=== PATIENT | male | born 1960 | race African-American/Black ===

== ENCOUNTER 2016-08-29 21:22 | Inpatient (IN) | payer MEDICARE, MEDICAID ==
[~2016-08-29] VITALS: Ht 185.4 cm; Wt 73.5 kg
[~2016-08-29 21:22] MED LIST: AMOXICILLI200 MG/5 M PO; CYCLOBENZAPRINE10 MG ORAL; DIAZEPAM5 MG ORAL; DIPHENHYDRAMINE25 M1 ORAL; KEFLEX500 MG ORAL; LISINOPRIL20 MG ORAL; RENVELA0.8 GM ORAL; ZEBETA5 MG ORAL
[2016-08-29 22:46] LABS: MEAN CORPUSCULAR HEMOGLOBIN 30.2 PG (27.0-31.0); MEAN CORPUSCULAR HGB CONC 29.1 G/DL (32.0-36.0); MEAN CORPUSCULAR VOLUME 104 FL (80-99); MEAN PLATELET VOLUME 6.7 FL (6.5-10.1); PLATELET COUNT 229 K/UL (150-450); RED BLOOD COUNT 1.93 M/UL (4.70-6.10); WHITE BLOOD COUNT 8.5 K/UL (4.8-10.8)
[2016-08-29 22:55] LABS: TROPONIN I < 0.30 ng/mL (<=0.30)
[2016-08-29 22:58] VITALS: BP 125/71
[2016-08-29 22:59] LABS: ALBUMIN/GLOBULIN RATIO 1.3 (1.0-2.7); CALCIUM 7.9 mg/dL (8.6-10.2); CREATININE 6.5 mg/dL (0.7-1.2); GLOMERULAR FILTRATION RATE 10.8 mL/min (>60); POTASSIUM 4.7 mEQ/L (3.4-4.9); TOTAL PROTEIN 6.8 g/dL (6.6-8.7)
[2016-08-29 23:10] LABS: CKMB 3.2 ng/mL (< 6.7)
[2016-08-29 23:39] LABS: ANISOCYTOSIS 2+; EOSINOPHILS % (MANUAL) 6 % (0-3); LYMPHOCYTES % (MANUAL) 21 % (20-45); NEUTROPHILS % (MANUAL) 70 % (45-75); POLYCHROMASIA 2+; TOTAL CELLS COUNTED 100
[2016-08-29 23:40] LABS: INR 1.1 (0.9-1.1); PROTHROMBIN TIME 10.7 SEC (9.30-11.50)
[2016-08-29 23:40] LABS: HYPOCHROMASIA 2+
[2016-08-29 23:41] LABS: BAND NEUTROPHILS % (MANUAL) 0 % (0-8); BASOPHILS % (MANUAL) 0 % (0-2); PLATELET ESTIMATE ADEQUATE; PLATELET MORPHOLOGY NORMAL
[2016-08-30] VITALS (9 sets, daily range): BP systolic 109–151; BP diastolic 67–94
[2016-08-30] MEDS ORDERED: DuoNeb 0.5-3(2.5)mg/3ml neb HHN PRN (00:30)
[2016-08-30] MEDS ORDERED: Miralax 17gm pkt ORAL PRN (00:30)
[2016-08-30] MEDS ORDERED: Zolpidem 5mg tab ORAL PRN (00:30)
[2016-08-30] MEDS ORDERED: Mylanta II UD 30ml ORAL PRN (00:30)
[2016-08-30] MEDS ORDERED: CATAPRES0.3 MG ORAL (02:24)
[2016-08-30] MEDS ORDERED: COMBIVENT RESPIM4 GM IH (02:24)
[2016-08-30] MEDS ORDERED: FLUTICASONE PRO16 G1 NASAL (02:24)
[2016-08-30] MEDS ORDERED: RENVELA0.8 GM ORAL (02:24)
[2016-08-30] MEDS ORDERED: RANITIDINE HCL150 MG ORAL (02:24)
--- NOTE | 2016-08-30 03:06 | Emergency Room Report ---
History of Present Illness General Chief Complaint: Abnormal Labs Source: Patient Present Illness HPI 55-year-old male presents ED complaining of weakness. Notes feeling weak for the last few days. States he gets dialysis today. Stated that at dialysis he had labs done which were abnormal. Said his potassium was high and he needed a transfusion. Denies any chest pain or shortness of breath. Denies any fevers or chills. No other aggravating relieving factors. Denies any other associated symptoms Allergies: Coded Allergies: IODINE (Verified Allergy, Unknown, 01/19/16) Patient History Past Medical History: DM, HTN, renal disease, dialysis Past Surgical History: none Pertinent Family History: none Social History: Denies: alcohol use, drug use, smoking Immunizations: UTD Reviewed Nursing Documentation: PMH: Agreed, PSxH: Agreed Nursing Documentation-PMH Hx Cardiac Problems: Yes Hx Hypertension: Yes Hx Diabetes: Yes Hx Dialysis: Yes - tues, thurs, sat kidney failure Review of Systems All Other Systems: negative except mentioned in HPI Physical Exam Vital Signs Date Time Temp Pulse Resp B/P Pulse Ox O2 Delivery O2 Flow Rate FiO2 08/29/16 21:32 98.1 86 18 137/90 100 Room Air Sp02 EP Interpretation: reviewed, normal General Appearance: no apparent distress, alert, GCS 15, non-toxic Head: normocephalic, atraumatic Eyes: bilateral eye PERRL, bilateral eye normal inspection ENT: hearing grossly normal, normal pharynx, no angioedema, normal voice Neck: full range of motion, supple/symm/no masses Respiratory: chest non-tender, lungs clear, normal breath sounds, speaking full sentences Cardiovascular #1: regular rate, rhythm, no edema Cardiovascular #2: 2+ carotid (R), 2+ carotid (L), 2+ radial (R), 2+ radial (L) , 2+ dorsalis pedis (R), 2+ dorsalis pedis (L) Gastrointestinal: normal bowel sounds, non tender, soft, non-distended, no guarding, no rebound Rectal: deferred Genitourinary: normal inspection, no CVA tenderness Musculoskeletal: back normal, gait/station normal, normal range of motion, non- tender Neurologic: alert, oriented x3, responsive, motor strength/tone normal, sensory intact, speech normal Psychiatric: judgement/insight normal, memory normal, mood/affect normal, no suicidal/homicidal ideation Reflexes: 3+ bicep (R), 3+ bicep (L), 3+ tricep (R), 3+ tricep (L), 3+ knee (R) , 3+ knee (L) Skin: normal color, no rash, warm/dry, well hydrated Lymphatic: no adenopathy Medical Decision Making Diagnostic Impression: Primary Impression: Anemia requiring transfusions Additional Impression: ESRD (end stage renal disease) on dialysis ER Course Hospital Course 55-year-old male presents to ED complaining of weakness, states his potassium is high. Was at dialysis today Differential diagnoses include: ACS/AL, dehydration, hyperkalelmia Clinical course Patient placed on stretcher. After initial history and physical I ordered labs , EKG, CXR Labs- hemoglobin 5.8, BUN/Cr elevated, Trop negative, K ok. CXR - cardiomegaly EKG - no ischemic changes, no peaked twaves, no sine wave. PRBCs ordered Case discussed with Dr Juarez and he agreed to admit the patient Diagnosis - anemia requiring transfusions, ESRD on dialysis admitted to [facility] in serious condition Labs Test 08/29/16 22:18 08/29/16 23:08 White Blood Count 8.5 K/UL (4.8-10.8) Red Blood Count 1.93 M/UL (4.70-6.10) Hemoglobin 5.8 G/DL (14.2-18.0) Hematocrit 20.1 % (42.0-52.0) Mean Corpuscular Volume 104 FL (80-99) Mean Corpuscular Hemoglobin 30.2 PG (27.0-31.0) Mean Corpuscular Hemoglobin Concent 29.1 G/DL (32.0-36.0) Red Cell Distribution Width 19.0 % (11.6-14.8) Platelet Count 229 K/UL (150-450) Mean Platelet Volume 6.7 FL (6.5-10.1) Neutrophils (%) (Auto) % (45.0-75.0) Lymphocytes (%) (Auto) % (20.0-45.0) Monocytes (%) (Auto) % (1.0-10.0) Eosinophils (%) (Auto) % (0.0-3.0) Basophils (%) (Auto) % (0.0-2.0) Differential Total Cells Counted 100 Neutrophils % (Manual) 70 % (45-75) Lymphocytes % (Manual) 21 % (20-45) Monocytes % (Manual) 3 % (1-10) Eosinophils % (Manual) 6 % (0-3) Basophils % (Manual) 0 % (0-2) Band Neutrophils 0 % (0-8) Platelet Estimate Adequate Platelet Morphology Normal Polychromasia 2+ Hypochromasia 2+ Anisocytosis 2+ Sodium Level 141 mEQ/L (135-145) Potassium Level 4.7 mEQ/L (3.4-4.9) Chloride Level 99 mEQ/L (98-107) Carbon Dioxide Level 24 mEQ/L (20-30) Anion Gap 18 (5-15) Blood Urea Nitrogen 29 mg/dL (7-23) Creatinine 6.5 mg/dL (0.7-1.2) Estimat Glomerular Filtration Rate 10.8 mL/min (>60) Glucose Level 102 mg/dL (74-106) Calcium Level 7.9 mg/dL (8.6-10.2) Total Bilirubin 0.2 mg/dL (0.0-1.2) Aspartate Amino Transf (AST/SGOT) 32 U/L (5-40) Alanine Aminotransferase (ALT/SGPT) 17 U/L (3-41) Alkaline Phosphatase 85 U/L (40-129) Total Creatine Kinase 144 U/L (38-174) Creatine Kinase MB 3.2 ng/mL (< 6.7) Creatine Kinase MB Relative Index 2.2 Troponin I < 0.30 ng/mL (<=0.30) Pro-B-Type Natriuretic Peptide 97206 pg/mL (0-125) Total Protein 6.8 g/dL (6.6-8.7) Albumin 3.9 g/dL (3.5-5.2) Globulin 2.9 g/dL Albumin/Globulin Ratio 1.3 (1.0-2.7) Prothrombin Time 10.7 SEC (9.30-11.50) Prothromb Time International Ratio 1.1 (0.9-1.1) Activated Partial Thromboplast Time 25 SEC (23-33) EKG Diagnostic Results Rate: normal Rhythm: NSR ST Segments: no acute changes ASA given to the pt in ED: No Rhythm Strip Diag. Results EP Interpretation: yes Rhythm: NSR, no PVC's, no ectopy Chest X-Ray Diagnostic Results EP Interpretation: Yes Findings: no consolidation, no effusion, no pneumothorax, no acute cardiopulmonary disease, other - cardiomegaly Number of Views: 1 Last Vital Signs Date Time Temp Pulse Resp B/P Pulse Ox O2 Delivery O2 Flow Rate FiO2 08/30/16 02:30 97.6 77 15 142/67 100 Room Air Status: improved Disposition: ADMITTED INPATIENT Condition: Serious Referrals: NON PHYSICIAN (PCP) SERAFIN NICOLE M.D. Aug 30, 2016 03:06
[2016-08-30] MEDS: Morphine Sulfate 2mg/ml Inj IVP PRN ×2 (04:23→23:09)
[2016-08-30] MEDS ORDERED: LISINOPRIL40 MG ORAL (04:36)
[2016-08-30] MEDS ORDERED: NITROSTAT0.4 M1 SL (04:36)
[2016-08-30] MEDS ORDERED: RENVELA800 MG ORAL (04:36)
[2016-08-30] MEDS ORDERED: NIFEDICAL XL60 MG ORAL (04:36)
[2016-08-30] MEDS ORDERED: TYLENOL WITH C1 EAC2 ORAL (04:40)
[2016-08-30] MEDS: NovoLOG Insulin Flexpen SUBQ SCH ×4 (06:30→21:00)
[2016-08-30 08:12] LABS: MEAN CORPUSCULAR HEMOGLOBIN 29.9 PG (27.0-31.0); MEAN CORPUSCULAR HGB CONC 29.3 G/DL (32.0-36.0); MEAN CORPUSCULAR VOLUME 102 FL (80-99); MEAN PLATELET VOLUME 7.3 FL (6.5-10.1); PLATELET COUNT 195 K/UL (150-450); RED BLOOD COUNT 2.17 M/UL (4.70-6.10); RED CELL DISTRIBUTION WIDTH 18.4 % (11.6-14.8); WHITE BLOOD COUNT 6.5 K/UL (4.8-10.8)
[2016-08-30] MEDS: Heparin 5000 units/ml inj SUBQ SCH ×2 (08:27→21:00)
[2016-08-30 08:36] LABS: PATH BLOOD SMEAR/OMC SENT TO PATHOLOGIST
--- NOTE | 2016-08-30 08:45 | Consultation ---
Consult Note Consult Note asked to eval for dialysis management 55-year-old male presents ED complaining of weakness. Notes feeling weak for the last few days. States he gets dialysis today. Stated that at dialysis he had labs done which were abnormal. Said his potassium was high and he needed a transfusion. Denies any chest pain or shortness of breath. Denies any fevers or chills. No other aggravating relieving factors. Denies any other associated symptoms Allergies: IODINE (Verified Allergy, Unknown, 01/19/16) Past Medical History: DM, HTN, renal disease, dialysis admitted with sever symptomatic Anemia HD last yesterday , next 08/31 Assessment/Plan ESRD for 16 years Anemia HTN Plan: Transfuse- Anemia ORTIZ HD in am BP adjustment FIDELINA MOFFETT Aug 30, 2016 08:45
[2016-08-30 09:31] LABS: ERYTHROCYTE SEDIMENTATION RATE 60 MM/HR (0-20)
[2016-08-30 09:35] LABS: ANISOCYTOSIS 2+; BAND NEUTROPHILS % (MANUAL) 0 % (0-8); BASOPHILS % (MANUAL) 0 % (0-2); EOSINOPHILS % (MANUAL) 10 % (0-3); HYPOCHROMASIA 2+; LYMPHOCYTES % (MANUAL) 28 % (20-45); NEUTROPHILS % (MANUAL) 60 % (45-75); PLATELET ESTIMATE ADEQUATE; PLATELET MORPHOLOGY NORMAL; TOTAL CELLS COUNTED 100
[2016-08-30 09:36] LABS: MACROCYTES 1+
[2016-08-30 09:37] LABS: POLYCHROMASIA 1+
[2016-08-30] MEDS: Lisinopril 20mg tab ORAL SCH ×2 (09:59→17:23)
[2016-08-30 10:26] LABS: RETICULOCYTE COUNT 6.3 % (0.0-2.0)
--- NOTE | 2016-08-30 12:24 | Diagnostic Imaging Report ---
Indication: Shortness of breath Technique: One view of the chest Comparison: 10/25/2007 Findings: The heart is markedly enlarged, although less so than demonstrated on the previous exam. Lungs and pleural spaces are clear.. Impression: Cardiomegaly No definite acute process This agrees with the preliminary interpretation provided by the emergency room physician
--- NOTE | 2016-08-30 15:07 | Consultation ---
History of Present Illness General Date patient seen: Aug 30, 2016 Chief Complaint: Abnormal Labs Referring physician: Dr. Juarez Reason for Consultation: inpatient management Present Illness HPI 55-year-old male with hx of DM, HTN, ESRF, Cardiomegaly presented to ED complaining of weakness for the last few days. States he gets dialysis and had labs done which were abnormal. Said his potassium was high and he needed a transfusion. Denies any chest pain or shortness of breath. Denies any fevers or chills. No other aggravating relieving factors. Patient received the initial treatment in ER and admitted to telemetry for further evaluation. Allergies: Coded Allergies: IODINE (Verified Allergy, Unknown, 01/19/16) PENICILLINS (Verified Allergy, Unknown, 08/30/16) Medication History Scheduled Acetaminophen With Codeine (T#3) (Tylenol With Codeine #3 Tablet), 1 TAB ORAL DAILY, (Reported) Amoxicillin* (Amoxicillin*), 500 MG PO DAILY, (Reported) Bisoprolol Fumarate* (Zebeta*), 5 MG ORAL DAILY, (Reported) Cephalexin* (Keflex*), 500 MG ORAL Q6H Clonidine Hcl* (Catapres*), 0.3 MG ORAL Q6HR, (Reported) Cyclobenzaprine Hcl* (Flexeril*), 10 MG ORAL DAILY, (Reported) Diphenhydramine Hcl* (Diphenhydramine Hcl*), 25 MG ORAL DAILY, (Reported) Fluticasone Propionate* (Fluticasone Propionate*), 1 SPRAY NASAL DAILY, ( Reported) Lisinopril* (Lisinopril*), 40 MG ORAL BID, (Reported) Nifedipine Xl* (Procardia Xl*), 60 MG ORAL DAILY, (Reported) Ranitidine Hcl* (Zantac*), 150 MG ORAL DAILY, (Reported) Sevelamer Carbonate (Renvela), 3,200 MG ORAL THREE TIMES A DAY, (Reported) Scheduled PRN Diazepam* (Diazepam*), 5 MG ORAL DAILY PRN for For High Blood Pressure, ( Reported) Nitroglycerin (Nitrostat), 0.4 MG SL Q5M X3 DOSES PRN for CHEST PAIN, (Reported) Miscellaneous Medications Ipratropium/Albuterol Sulfate (Combivent Respimat Inhal [place]), 4 GM IH, ( Reported) Discontinued Medications Lisinopril (Lisinopril*), 40 MG ORAL TID, (Reported) Discontinued Reason: Prescription changed Sevelamer Carbonate* (Renvela*), 800 MG ORAL THREE TIMES A DAY, (Reported) Discontinued Reason: Prescription changed Patient History Healthcare decision maker Resuscitation status Full Code Advanced Directive on File Past Medical/Surgical History Past Medical/Surgical History: (1) ESRD (end stage renal disease) on dialysis (2) Diabetes mellitus Review of Systems Constitutional: Reports: malaise, weakness All Other Systems: negative except mentioned in HPI Physical Exam General Appearance: WD/WN Lines, tubes and drains: peripheral, central line Neck: non-tender, normal alignment Respiratory/Chest: chest wall non-tender, lungs clear Cardiovascular/Chest: normal peripheral pulses, normal rate Abdomen: normal bowel sounds Last 24 Hour Vital Signs Date Time Temp Pulse Resp B/P Pulse Ox O2 Delivery O2 Flow Rate FiO2 08/30/16 11:18 96.9 75 20 151/91 100 Room Air 08/30/16 09:59 146/70 08/30/16 09:57 70 146/70 08/30/16 08:00 75 08/30/16 08:00 96.3 70 20 146/70 100 Room Air 08/30/16 04:08 98.7 74 20 146/83 95 Room Air 08/30/16 04:00 73 08/30/16 02:45 96.8 16 125/75 100 Room Air 08/30/16 02:30 97.6 77 15 142/67 100 Room Air 08/30/16 02:10 97.6 77 15 08/30/16 02:10 97.6 77 15 142/67 100 Room Air 08/30/16 01:55 97.3 77 12 148/72 100 Room Air 08/30/16 01:55 97.3 77 12 08/30/16 01:00 98.1 79 16 129/74 100 Room Air 08/29/16 22:58 98.1 78 13 125/71 100 Room Air 08/29/16 21:32 98.1 86 18 137/90 100 Room Air Intake and Output 08/29/16 08/30/16 19:00 07:00 Intake Total 30 ml Balance 30 ml Intake Oral 30 ml Laboratory Tests Test 08/29/16 22:18 08/29/16 23:08 08/30/16 06:35 08/30/16 08:00 White Blood Count 8.5 K/UL (4.8-10.8) 6.5 K/UL (4.8-10.8) Red Blood Count 1.93 M/UL (4.70-6.10) L 2.17 M/UL (4.70-6.10) L Hemoglobin 5.8 G/DL (14.2-18.0) *L 6.5 G/DL (14.2-18.0) *L Hematocrit 20.1 % (42.0-52.0) L 22.2 % (42.0-52.0) L Mean Corpuscular Volume 104 FL (80-99) H 102 FL (80-99) H Mean Corpuscular Hemoglobin 30.2 PG (27.0-31.0) 29.9 PG (27.0-31.0) Mean Corpuscular Hemoglobin Concent 29.1 G/DL (32.0-36.0) L 29.3 G/DL (32.0-36.0) L Red Cell Distribution Width 19.0 % (11.6-14.8) H 18.4 % (11.6-14.8) H Platelet Count 229 K/UL (150-450) 195 K/UL (150-450) Mean Platelet Volume 6.7 FL (6.5-10.1) 7.3 FL (6.5-10.1) Neutrophils (%) (Auto) % (45.0-75.0) % (45.0-75.0) Lymphocytes (%) (Auto) % (20.0-45.0) % (20.0-45.0) Monocytes (%) (Auto) % (1.0-10.0) % (1.0-10.0) Eosinophils (%) (Auto) % (0.0-3.0) % (0.0-3.0) Basophils (%) (Auto) % (0.0-2.0) % (0.0-2.0) Differential Total Cells Counted 100 100 Neutrophils % (Manual) 70 % (45-75) 60 % (45-75) Lymphocytes % (Manual) 21 % (20-45) 28 % (20-45) Monocytes % (Manual) 3 % (1-10) 2 % (1-10) Eosinophils % (Manual) 6 % (0-3) H 10 % (0-3) H Basophils % (Manual) 0 % (0-2) 0 % (0-2) Band Neutrophils 0 % (0-8) 0 % (0-8) Platelet Estimate Adequate Adequate Platelet Morphology Normal Normal Polychromasia 2+ 1+ Hypochromasia 2+ 2+ Anisocytosis 2+ 2+ Sodium Level 141 mEQ/L (135-145) Potassium Level 4.7 mEQ/L (3.4-4.9) Chloride Level 99 mEQ/L (98-107) Carbon Dioxide Level 24 mEQ/L (20-30) Anion Gap 18 (5-15) H Blood Urea Nitrogen 29 mg/dL (7-23) H Creatinine 6.5 mg/dL (0.7-1.2) H Estimat Glomerular Filtration Rate 10.8 mL/min (>60) Glucose Level 102 mg/dL (74-106) Calcium Level 7.9 mg/dL (8.6-10.2) L Total Bilirubin 0.2 mg/dL (0.0-1.2) Aspartate Amino Transf (AST/SGOT) 32 U/L (5-40) Alanine Aminotransferase (ALT/SGPT) 17 U/L (3-41) Alkaline Phosphatase 85 U/L (40-129) Total Creatine Kinase 144 U/L (38-174) Creatine Kinase MB 3.2 ng/mL (< 6.7) Creatine Kinase MB Relative Index 2.2 Troponin I < 0.30 ng/mL (<=0.30) Pro-B-Type Natriuretic Peptide 46561 pg/mL (0-125) H Total Protein 6.8 g/dL (6.6-8.7) Albumin 3.9 g/dL (3.5-5.2) Globulin 2.9 g/dL Albumin/Globulin Ratio 1.3 (1.0-2.7) Prothrombin Time 10.7 SEC (9.30-11.50) Prothromb Time International Ratio 1.1 (0.9-1.1) Activated Partial Thromboplast Time 25 SEC (23-33) Macrocytosis 1+ Erythrocyte Sedimentation Rate 60 MM/HR (0-20) H Reticulocyte Count 6.3 % (0.0-2.0) H Iron Level 60 ug/dL (59-158) Total Iron Binding Capacity 289 ug/dL (250-400) Percent Iron Saturation 21 % (15-50) Unsaturated Iron Binding 229 ug/dL (112-346) Lactate Dehydrogenase 185 U/L (135-230) Carcinoembryonic Antigen 5.4 ng/mL H Vitamin B12 Level 1417 pg/mL (211-946) H Methylmalonic Acid Pending Folate Pending Homocystine Pending Stool Occult Blood Positive (NEGATIVE) Height (Feet): 6 Height (Inches): 1.00 Weight (Pounds): 145 Medications Current Medications Medications (Trade) Dose Ordered Sig/Alejandro Route PRN Reason Start Time Stop Time Status Last Admin Dose Admin Acetaminophen (Tylenol) 650 mg Q4H PRN ORAL fever 08/30/16 00:30 09/29/16 00:29 Albuterol/ Ipratropium (DuoNeb 0.5-3(2.5)mg/3ml) 3 ml Q6HRT PRN HHN dyspnea 08/30/16 00:30 09/04/16 00:29 Clonidine HCl (Catapres) 0.1 mg Q4H PRN ORAL SBP>160 08/30/16 12:30 09/29/16 12:29 Dextrose (Dextrose 50%) STAT PRN IV Hypoglycemia 08/30/16 00:30 09/29/16 00:29 Heparin Sodium (Porcine) (Heparin 5000 units/ml) 5,000 units EVERY 12 HOURS SUBQ 08/30/16 09:00 09/29/16 08:59 Insulin Aspart (NovoLOG) BEFORE MEALS AND HS SUBQ 08/30/16 06:30 09/29/16 06:29 Lisinopril (Prinivil) 40 mg BID ORAL 08/30/16 09:00 09/29/16 08:59 08/30/16 09:59 Morphine Sulfate (Morphine Sulfate) 1 mg Q4H PRN IVP For Pain 08/30/16 00:30 09/06/16 00:29 08/30/16 04:23 Nifedipine (Procardia XL) 60 mg DAILY ORAL 08/30/16 09:00 09/29/16 08:59 08/30/16 09:57 Ondansetron HCl (Zofran) 4 mg Q6H PRN IVP Nausea & Vomiting 08/30/16 00:30 09/29/16 00:29 Pantoprazole (Protonix) 40 mg BID ORAL 08/30/16 09:00 09/29/16 08:59 08/30/16 09:58 Polyethylene Glycol (Miralax) 17 gm HSPRN PRN ORAL Constipation 08/30/16 00:30 09/29/16 00:29 Ranitidine HCl (Zantac) 150 mg DAILY ORAL 08/30/16 09:00 09/29/16 08:59 08/30/16 09:57 Sevelamer Carbonate (Renvela) 3,200 mg THREE TIMES A DAY ORAL 08/30/16 09:00 09/29/16 08:59 08/30/16 13:06 Zolpidem Tartrate (Ambien) 5 mg HSPRN PRN ORAL Insomnia 08/30/16 00:30 09/29/16 00:29 Assessment/Plan Problem List: (1) Anemia requiring transfusions ICD Codes: D64.9 - Anemia, unspecified SNOMED: 421155702 (2) Cardiomegaly ICD Codes: I51.7 - Cardiomegaly SNOMED: 8082434 (3) Diabetes mellitus ICD Codes: E11.9 - Type 2 diabetes mellitus without complications SNOMED: 92630210 (4) ESRD (end stage renal disease) on dialysis ICD Codes: N18.6 - End stage renal disease; Z99.2 - Dependence on renal dialysis SNOMED: 473466544 Assessment/Plan prbc stool for guac HD by nephrology diabetic diet sliding scale MICAH JEAN BAPTISTE Aug 30, 2016 15:07
--- NOTE | 2016-08-30 19:19 | History and Physical Report ---
DATE OF ADMISSION: 08/29/2016 HISTORY OF PRESENT ILLNESS: The patient comes in with severe anemia, hemoglobin of 5.8. The patient has end-stage renal disease, on hemodialysis. The patient also is complaining of shortness of breath. The patient smokes, has a history of drug abuse. Also on hemodialysis. The patient also is complaining of abdominal pain for couple of days, but the main reason he came in was for shortness of breath and weakness, and for severe anemia. PAST MEDICAL HISTORY: Significant for hypertension; end-stage renal disease, on hemodialysis; NIDDM; constipation; and GERD. ALLERGIES: Penicillin and iodine. PAST SURGICAL HISTORY: Hernia surgery and those related to dialysis surgery. MEDICATIONS: Catapres, Flexeril, diazepam, lisinopril, Procardia, Zantac, and Januvia. FAMILY HISTORY: Noncontributory. SOCIAL HISTORY: The patient smokes and has a history of drug abuse. No history of alcohol abuse. REVIEW OF SYSTEMS: HEENT: Denies headaches. weakness. Respiratory: Shortness of breath. Denies cough. Cardiovascular: Denies chest pain. Gastrointestinal: Denies nausea, vomiting, or diarrhea. Does have abdominal pain for a couple of days. Does have occasional constipation. Extremities: Denies pain in extremities. Central Nervous System: Denies change in vision or speech pattern. PHYSICAL EXAMINATION: VITAL SIGNS: Temperature is 98.7, pulse is 74, and blood pressure is 146/83. HEENT: PERRLA. NECK: Supple. CHEST: Clear to auscultation. He does have bruit on the shunt with dialysis, positive bruit. GASTROINTESTINAL: Soft, nontender, and nondistended. No organomegaly. Positive bowel sounds. EXTREMITIES: 1+ edema. NEUROLOGIC: Moves all four extremities. LABORATORY DATA: WBC of 8.5, hemoglobin of 5.8, and platelets of 229,000. Sodium 141, potassium 4.7, BUN of 29, creatinine of 6.5, and glucose of 102. BNP of 44,368. ASSESSMENT AND PLAN: 1. Severe anemia. 2. End-stage renal disease, on hemodialysis. 3. Elevated BNP. 4. I have asked Dr. Lwason, Dr. Irene, Dr. Brock, and Dr. Bird to the patient with shortness of breath and the above-mentioned diagnoses and treatment. Juan Carlos Juarez M.D. DR: JAIDEN JOB#: [id number] CC:
[2016-08-30] MEDS ORDERED: Nitroglycerin Subl 0.4mg tab (Bottle Of 25) SL PRN ×2 (23:30→23:45)
[2016-08-31] VITALS (7 sets, daily range): BP systolic 156–179; BP diastolic 86–103
[2016-08-31] MEDS ORDERED: Morphine Sulfate 2mg/ml Inj IVP PRN (00:30)
[2016-08-31] MEDS ORDERED: Zolpidem 5mg tab ORAL PRN (00:30)
[2016-08-31] MEDS ORDERED: Miralax 17gm pkt ORAL PRN (00:30)
[2016-08-31] MEDS ORDERED: DuoNeb 0.5-3(2.5)mg/3ml neb HHN PRN (01:00)
--- NOTE | 2016-08-31 03:19 | Consultation ---
DATE OF CONSULTATION: 08/30/2016 NOTE: VERY POOR AUDIO QUALITY HEMATOLOGY/ONCOLOGY CONSULTATION REFERRING PHYSICIAN: Juan Carlos Juarez M.D REASON FOR CONSULTATION: Evaluation of anemia, severe. IDENTIFICATION: Dear Dr. Larry Rangel, The patient is a 55-year-old male with a past medical history significant for end-stage renal disease on hemodialysis, hypertension, and diabetes mellitus, at this time is admitted with anemia that is severe with a hemoglobin of 5.8. He complains of weakness upon presentation to the ER . He has missed several sessions of dialysis and most recently has completed several days of . Potassium is elevated. The patient received his transfusion asymptomatic at this time. Hematology service was consulted . PAST MEDICAL HISTORY: Hypertension, end-stage renal disease, on dialysis, and diabetes mellitus. PAST SURGICAL HISTORY: None noted. MEDICATIONS: Tylenol, amoxicillin, Divalproex, Keflex, Clozaril, benazepril, . ALLERGIES: No known drug allergies. REVIEW OF SYSTEMS: Constitutional: Generalized malaise and fatigue. Skin: No rashes, lumps, or itching. HEENT: No headache, hearing, or vision changes. Breasts: No lumps, pain, or discharge. Pulmonary: No cough, sputum, or shortness of breath. Cardiovascular: No chest pain, tightness, or palpitations. Gastrointestinal: No nausea, vomiting, or diarrhea. Genitourinary: No dysuria, frequency, or urgency. Musculoskeletal: No joint swelling, muscle pain, or trauma. PHYSICAL EXAMINATION: VITAL SIGNS: Blood pressure is 109/88, respiratory rate 12, pulse 71, O2 saturation 99% on room air, and temperature 96.6. GENERAL: The patient is in no acute distress. PULMONARY: Decreased breath sounds. CARDIOVASCULAR: Regular rate and rhythm. No S3 or S4. ABDOMEN: Soft, nontender, and nondistended. EXTREMITIES: A 1+ edema. LABORATORY DATA: WBC is 6.5, hemoglobin 5.8, hematocrit 22, MCV , and platelet count 195,000. ESR 60 and reticulocyte count of 6.3. Chemistry, BUN 29, creatinine 6.5. . Vitamin B12 . INR 1.1. ASSESSMENT: 1. Anemia, secondary to chronic disease. 2. Decreased hemoglobin and hematocrit, rule out gastrointestinal bleed. 3. , secondary to B12 deficiency versus TSH abnormality . 4. Anemia, secondary to kidney disease. 5. End-stage renal disease, on hemodialysis. 6. Hypertension. 7. . 8. . 9. Diabetes mellitus. RECOMMENDATIONS: 1. Monitor counts. 2. Hemodialysis to resume. 3. Continue Epogen. 4. Anemia workup has been ordered. 5. . 6. GI prophylaxis. 7. Transfuse with blood to maintain hemoglobin above 7. 8. . 9. Peripheral smear to be reviewed. 10. Followup on Pulmonary . 11. Check iron status. 12. Discussed with staff. Thank you, Dr. Larry Rangel, for this kind referral. Please do not hesitate to contact me with any further questions. Triston Irene M.D. DR: CHRIS JOB#: [id number] CC:
[2016-08-31 06:29] LABS: BASOPHILS % (AUTO) 0.6 % (0.0-2.0); LYMPHOCYTES % (AUTO) 13.5 % (20.0-45.0); MEAN CORPUSCULAR HEMOGLOBIN 31.5 PG (27.0-31.0); MEAN CORPUSCULAR HGB CONC 31.8 G/DL (32.0-36.0); MEAN CORPUSCULAR VOLUME 99 FL (80-99); MEAN PLATELET VOLUME 6.9 FL (6.5-10.1); MONOCYTES % (AUTO) 4.4 % (1.0-10.0); NEUTROPHILS % (AUTO) 71.6 % (45.0-75.0); PLATELET COUNT 199 K/UL (150-450); RED BLOOD COUNT 2.88 M/UL (4.70-6.10); RED CELL DISTRIBUTION WIDTH 17.2 % (11.6-14.8)
[2016-08-31] MEDS ORDERED: NovoLOG Insulin Flexpen SUBQ SCH (06:30)
[2016-08-31 07:02] LABS: THYROID STIMULATING HORMONE 1.31 uIU/mL (0.300-4.500)
[2016-08-31 07:10] LABS: HEMOGLOBIN A1C 4.1 % (< 6.0)
[2016-08-31 07:13] LABS: ALBUMIN/GLOBULIN RATIO 1.6 (1.0-2.7); CALCIUM 7.5 mg/dL (8.6-10.2); CREATININE 8.9 mg/dL (0.7-1.2); GLOMERULAR FILTRATION RATE 7.5 mL/min (>60); POTASSIUM 5.1 mEQ/L (3.4-4.9); TOTAL PROTEIN 6.1 g/dL (6.6-8.7)
[2016-08-31 07:21] LABS: CRP QUANT 0.3 mg/dL (< 0.5); MAGNESIUM 2.6 mg/dL (1.7-2.5); PHOSPHORUS 5.5 mg/dL (2.5-4.8); URIC ACID 6.6 mg/dL (3.0-7.5)
[2016-08-31] MEDS: Heparin 5000 units/ml inj SUBQ SCH ×3 (09:00→20:51)
[2016-08-31] MEDS: Lisinopril 20mg tab ORAL SCH ×2 (09:00→17:25)
--- NOTE | 2016-08-31 09:52 | General Progress Note ---
Assessment/Plan Status Narrative transfused for Anemia- Due for dialysis today Assessment/Plan status; ESRD for 16 years Anemia HTN no evidence of DM Plan: Transfused Anemia ORTIZ HD today BP med adjustment Subjective ROS Limited/Unobtainable: No Constitutional: Reports: other - feels volume overload Allergies: Coded Allergies: IODINE (Verified Allergy, Unknown, 01/19/16) PENICILLINS (Verified Allergy, Unknown, 08/30/16) Objective Last 24 Hour Vital Signs Date Time Temp Pulse Resp B/P Pulse Ox O2 Delivery O2 Flow Rate FiO2 08/31/16 08:08 96.8 73 20 179/96 99 Room Air 08/31/16 07:50 82 16 Room Air 08/31/16 04:00 97.7 78 22 156/93 100 Room Air 08/31/16 00:00 97.5 76 20 161/103 100 Room Air 08/30/16 23:18 161/92 08/30/16 20:00 97.9 75 18 150/94 99 Room Air 08/30/16 17:23 109/88 08/30/16 16:00 96.6 71 18 109/88 99 Room Air 08/30/16 11:18 96.9 75 20 151/91 100 Room Air 08/30/16 09:59 146/70 08/30/16 09:57 70 146/70 Intake and Output 08/30/16 08/31/16 19:00 07:00 Intake Total 400 ml 360 ml Balance 400 ml 360 ml Intake Oral 400 ml 360 ml # Voids 1 # Bowel Movements 1 2 Laboratory Tests 08/31/16 04:15: White Blood Count 10.0#, Red Blood Count 2.88L, Hemoglobin 9.1#L, Hematocrit 28.6L, Mean Corpuscular Volume 99, Mean Corpuscular Hemoglobin 31.5H, Mean Corpuscular Hemoglobin Concent 31.8L, Red Cell Distribution Width 17.2H, Platelet Count 199, Mean Platelet Volume 6.9, Neutrophils (%) (Auto) 71.6, Lymphocytes (%) (Auto) 13.5L, Monocytes (%) (Auto) 4.4, Eosinophils (%) (Auto) 10.0H, Basophils (%) (Auto) 0.6, Sodium Level 138, Potassium Level 5.1H, Chloride Level 93L, Carbon Dioxide Level 23, Anion Gap 22H, Blood Urea Nitrogen 47H, Creatinine 8.9H, Estimat Glomerular Filtration Rate 7.5, Glucose Level 134H , Hemoglobin A1c 4.1, Uric Acid 6.6, Calcium Level 7.5L, Phosphorus Level 5.5H, Magnesium Level 2.6H, Total Bilirubin 0.3, Aspartate Amino Transf (AST/SGOT) 33 , Alanine Aminotransferase (ALT/SGPT) 17, Alkaline Phosphatase 83, C-Reactive Protein, Quantitative 0.3, Pro-B-Type Natriuretic Peptide 17990Q, Total Protein 6.1L, Albumin 3.8, Globulin 2.3, Albumin/Globulin Ratio 1.6, Triglycerides Level 121, Cholesterol Level 129, LDL Cholesterol 42L, HDL Cholesterol 63H, Cholesterol/HDL Ratio 2.0L, Thyroid Stimulating Hormone (TSH) 1.310 Height (Feet): 6 Height (Inches): 1.00 Weight (Pounds): 167 Cardiovascular: normal rate Respiratory/Chest: decreased breath sounds Abdomen: soft Objective other physical exam not changed FIDELINA MOFFETT Aug 31, 2016 09:52
[2016-08-31] MEDS ORDERED: NS 275ml ONE (11:01)
--- NOTE | 2016-08-31 11:09 | General Progress Note ---
Assessment/Plan Problem List: (1) UTI (urinary tract infection) ICD Codes: N39.0 - Urinary tract infection, site not specified SNOMED: 56649000 (2) ESRD (end stage renal disease) on dialysis ICD Codes: N18.6 - End stage renal disease; Z99.2 - Dependence on renal dialysis SNOMED: 063622319 (3) Anemia requiring transfusions ICD Codes: D64.9 - Anemia, unspecified SNOMED: 940436380 (4) Diabetes mellitus ICD Codes: E11.9 - Type 2 diabetes mellitus without complications SNOMED: 69144117 (5) Cardiomegaly ICD Codes: I51.7 - Cardiomegaly SNOMED: 3937241 Status: progressing Assessment/Plan afebrile severe anemia is improving check h/h reviewed chart and labs esrd on hd Subjective ROS Limited/Unobtainable: Yes Allergies: Coded Allergies: IODINE (Verified Allergy, Unknown, 01/19/16) PENICILLINS (Verified Allergy, Unknown, 08/30/16) Objective Last 24 Hour Vital Signs Date Time Temp Pulse Resp B/P Pulse Ox O2 Delivery O2 Flow Rate FiO2 08/31/16 11:05 189/102 08/31/16 09:15 Room Air 08/31/16 08:08 96.8 73 20 179/96 99 Room Air 08/31/16 07:50 82 16 Room Air 08/31/16 04:00 97.7 78 22 156/93 100 Room Air 08/31/16 00:00 97.5 76 20 161/103 100 Room Air 08/30/16 23:18 161/92 08/30/16 20:00 97.9 75 18 150/94 99 Room Air 08/30/16 17:23 109/88 08/30/16 16:00 96.6 71 18 109/88 99 Room Air 08/30/16 11:18 96.9 75 20 151/91 100 Room Air Intake and Output 08/30/16 08/31/16 19:00 07:00 Intake Total 400 ml 360 ml Balance 400 ml 360 ml Intake Oral 400 ml 360 ml # Voids 1 # Bowel Movements 1 2 Laboratory Tests 08/31/16 04:15: White Blood Count 10.0#, Red Blood Count 2.88L, Hemoglobin 9.1#L, Hematocrit 28.6L, Mean Corpuscular Volume 99, Mean Corpuscular Hemoglobin 31.5H, Mean Corpuscular Hemoglobin Concent 31.8L, Red Cell Distribution Width 17.2H, Platelet Count 199, Mean Platelet Volume 6.9, Neutrophils (%) (Auto) 71.6, Lymphocytes (%) (Auto) 13.5L, Monocytes (%) (Auto) 4.4, Eosinophils (%) (Auto) 10.0H, Basophils (%) (Auto) 0.6, Sodium Level 138, Potassium Level 5.1H, Chloride Level 93L, Carbon Dioxide Level 23, Anion Gap 22H, Blood Urea Nitrogen 47H, Creatinine 8.9H, Estimat Glomerular Filtration Rate 7.5, Glucose Level 134H , Hemoglobin A1c 4.1, Uric Acid 6.6, Calcium Level 7.5L, Phosphorus Level 5.5H, Magnesium Level 2.6H, Total Bilirubin 0.3, Aspartate Amino Transf (AST/SGOT) 33 , Alanine Aminotransferase (ALT/SGPT) 17, Alkaline Phosphatase 83, C-Reactive Protein, Quantitative 0.3, Pro-B-Type Natriuretic Peptide 72163Q, Total Protein 6.1L, Albumin 3.8, Globulin 2.3, Albumin/Globulin Ratio 1.6, Triglycerides Level 121, Cholesterol Level 129, LDL Cholesterol 42L, HDL Cholesterol 63H, Cholesterol/HDL Ratio 2.0L, Thyroid Stimulating Hormone (TSH) 1.310 Height (Feet): 6 Height (Inches): 1.00 Weight (Pounds): 167 EENT: PERRL/EOMI Neck: supple Cardiovascular: normal rate Respiratory/Chest: lungs clear Abdomen: soft Juan Carlos Juarez MD Aug 31, 2016 11:09
--- NOTE | 2016-08-31 16:07 | General Progress Note ---
Assessment/Plan Assessment/Plan ASSESSMENT: 1. Anemia, secondary to chronic disease. +MACROcytosis 2. Decreased hemoglobin and hematocrit, rule out gastrointestinal bleed. 3. Anemia secondary to B12 deficiency 4. Anemia, secondary to kidney disease. 5. End-stage renal disease, on hemodialysis. 6. Hypertension. 7. DM RECOMMENDATIONS: 1. Monitor counts. 2. Hemodialysis to resume. 3. Continue Epogen. 4. Anemia workup has been reviewed 5. Continue ferrous sulfate given ferritin <300 6. GI prophylaxis. 7. Transfuse with blood to maintain hemoglobin above 7. 8. Followup with nephro, pulm recs 9. Discussed with staff. Thank you, Triston Irene MD Subjective Constitutional: Reports: no symptoms HEENT: Reports: no symptoms Cardiovascular: Reports: no symptoms Respiratory: Reports: no symptoms Gastrointestinal/Abdominal: Reports: no symptoms Genitourinary: Reports: no symptoms Neurologic/Psychiatric: Reports: no symptoms Endocrine: Reports: no symptoms Hematologic/Lymphatic: Reports: anemia Allergies: Coded Allergies: IODINE (Verified Allergy, Unknown, 01/19/16) PENICILLINS (Verified Allergy, Unknown, 08/30/16) Subjective stable, will need outpatient followup for anemia Objective Last 24 Hour Vital Signs Date Time Temp Pulse Resp B/P Pulse Ox O2 Delivery O2 Flow Rate FiO2 08/31/16 13:01 Room Air 08/31/16 12:56 Room Air 08/31/16 11:57 96.9 78 19 169/86 97 Room Air 08/31/16 11:05 189/102 08/31/16 09:15 Room Air 08/31/16 09:15 Room Air 08/31/16 08:08 96.8 73 20 179/96 99 Room Air 08/31/16 07:50 82 16 Room Air 08/31/16 04:00 97.7 78 22 156/93 100 Room Air 08/31/16 00:00 97.5 76 20 161/103 100 Room Air 08/30/16 23:18 161/92 08/30/16 20:00 97.9 75 18 150/94 99 Room Air 08/30/16 17:23 109/88 Intake and Output 08/30/16 08/31/16 19:00 07:00 Intake Total 400 ml 360 ml Balance 400 ml 360 ml Intake Oral 400 ml 360 ml # Voids 1 # Bowel Movements 1 2 Laboratory Tests 08/31/16 04:15: White Blood Count 10.0#, Red Blood Count 2.88L, Hemoglobin 9.1#L, Hematocrit 28.6L, Mean Corpuscular Volume 99, Mean Corpuscular Hemoglobin 31.5H, Mean Corpuscular Hemoglobin Concent 31.8L, Red Cell Distribution Width 17.2H, Platelet Count 199, Mean Platelet Volume 6.9, Neutrophils (%) (Auto) 71.6, Lymphocytes (%) (Auto) 13.5L, Monocytes (%) (Auto) 4.4, Eosinophils (%) (Auto) 10.0H, Basophils (%) (Auto) 0.6, Sodium Level 138, Potassium Level 5.1H, Chloride Level 93L, Carbon Dioxide Level 23, Anion Gap 22H, Blood Urea Nitrogen 47H, Creatinine 8.9H, Estimat Glomerular Filtration Rate 7.5, Glucose Level 134H , Hemoglobin A1c 4.1, Uric Acid 6.6, Calcium Level 7.5L, Phosphorus Level 5.5H, Magnesium Level 2.6H, Total Bilirubin 0.3, Aspartate Amino Transf (AST/SGOT) 33 , Alanine Aminotransferase (ALT/SGPT) 17, Alkaline Phosphatase 83, C-Reactive Protein, Quantitative 0.3, Pro-B-Type Natriuretic Peptide 76704I, Total Protein 6.1L, Albumin 3.8, Globulin 2.3, Albumin/Globulin Ratio 1.6, Triglycerides Level 121, Cholesterol Level 129, LDL Cholesterol 42L, HDL Cholesterol 63H, Cholesterol/HDL Ratio 2.0L, Thyroid Stimulating Hormone (TSH) 1.310 Height (Feet): 6 Height (Inches): 1.00 Weight (Pounds): 167 General Appearance: no apparent distress EENT: TMs normal Neck: normal inspection Cardiovascular: normal rate Respiratory/Chest: lungs clear Abdomen: soft Extremities: normal inspection Edema: 1+ Leg (L), 1+ Leg (R) Neurologic: alert Skin: normal pigmentation Triston Irene Aug 31, 2016 16:07
--- NOTE | 2016-08-31 22:03 | Pulmonology Progress Note ---
Assessment/Plan Problems: (1) Anemia requiring transfusions (2) Cardiomegaly (3) Diabetes mellitus (4) ESRD (end stage renal disease) on dialysis Assessment/Plan s/p prbc h/h better HD by nephrology dc planning Subjective ROS Limited/Unobtainable: No Allergies: Coded Allergies: IODINE (Verified Allergy, Unknown, 01/19/16) PENICILLINS (Verified Allergy, Unknown, 08/30/16) Objective Last 24 Hour Vital Signs Date Time Temp Pulse Resp B/P Pulse Ox O2 Delivery O2 Flow Rate FiO2 08/31/16 20:59 168/92 08/31/16 20:00 98.6 84 20 168/92 100 Room Air 08/31/16 19:14 80 18 Room Air 08/31/16 17:56 97.9 08/31/16 17:25 165/97 08/31/16 16:58 97.9 81 19 165/97 100 08/31/16 13:01 Room Air 08/31/16 12:56 Room Air 08/31/16 11:57 96.9 78 19 169/86 97 Room Air 08/31/16 11:05 189/102 08/31/16 09:15 Room Air 08/31/16 09:15 Room Air 08/31/16 08:08 96.8 73 20 179/96 99 Room Air 08/31/16 07:50 82 16 Room Air 08/31/16 04:00 97.7 78 22 156/93 100 Room Air 08/31/16 00:00 97.5 76 20 161/103 100 Room Air 08/30/16 23:18 161/92 Intake and Output 08/30/16 08/31/16 19:00 07:00 Intake Total 400 ml 360 ml Balance 400 ml 360 ml Intake Oral 400 ml 360 ml # Voids 1 # Bowel Movements 1 2 Objective General Appearance: WD/WN HEENT: normocephalic, atraumatic Respiratory/Chest: chest wall non-tender, lungs clear Cardiovascular: normal peripheral pulses, normal rate, regular rhythm Abdomen: normal bowel sounds, soft, non tender, no organomegaly Genitourinary: normal external genitalia Extremities: no cyanosis, no clubbing Skin: no rash, no lesions Neurologic/Psychiatric: staff training and development manager II-XII grossly normal Laboratory Tests 08/31/16 04:15: White Blood Count 10.0#, Red Blood Count 2.88L, Hemoglobin 9.1#L, Hematocrit 28.6L, Mean Corpuscular Volume 99, Mean Corpuscular Hemoglobin 31.5H, Mean Corpuscular Hemoglobin Concent 31.8L, Red Cell Distribution Width 17.2H, Platelet Count 199, Mean Platelet Volume 6.9, Neutrophils (%) (Auto) 71.6, Lymphocytes (%) (Auto) 13.5L, Monocytes (%) (Auto) 4.4, Eosinophils (%) (Auto) 10.0H, Basophils (%) (Auto) 0.6, Sodium Level 138, Potassium Level 5.1H, Chloride Level 93L, Carbon Dioxide Level 23, Anion Gap 22H, Blood Urea Nitrogen 47H, Creatinine 8.9H, Estimat Glomerular Filtration Rate 7.5, Glucose Level 134H , Hemoglobin A1c 4.1, Uric Acid 6.6, Calcium Level 7.5L, Phosphorus Level 5.5H, Magnesium Level 2.6H, Total Bilirubin 0.3, Aspartate Amino Transf (AST/SGOT) 33 , Alanine Aminotransferase (ALT/SGPT) 17, Alkaline Phosphatase 83, C-Reactive Protein, Quantitative 0.3, Pro-B-Type Natriuretic Peptide 21032T, Total Protein 6.1L, Albumin 3.8, Globulin 2.3, Albumin/Globulin Ratio 1.6, Triglycerides Level 121, Cholesterol Level 129, LDL Cholesterol 42L, HDL Cholesterol 63H, Cholesterol/HDL Ratio 2.0L, Thyroid Stimulating Hormone (TSH) 1.310 Current Medications Medications (Trade) Dose Ordered Sig/Alejandro Route PRN Reason Start Time Stop Time Status Last Admin Dose Admin Acetaminophen (Tylenol) 650 mg Q4H PRN ORAL fever 08/31/16 00:30 09/30/16 00:29 Albuterol/ Ipratropium (DuoNeb 0.5-3(2.5)mg/3ml) 3 ml Q6H PRN HHN dyspnea 08/31/16 01:00 09/05/16 00:59 Clonidine HCl (Catapres) 0.1 mg Q4H PRN ORAL SBP>160 08/31/16 00:30 09/30/16 00:29 08/31/16 20:59 Dextrose (Dextrose 50%) STAT PRN IV Hypoglycemia 08/31/16 00:30 09/30/16 00:29 Diazepam (Valium) 5 mg DAILY ORAL 08/31/16 10:00 09/07/16 09:59 08/31/16 09:47 Diphenhydramine HCl (Benadryl) 25 mg Q6H PRN ORAL Itching 08/31/16 09:15 09/30/16 09:14 08/31/16 17:25 Heparin Sodium (Porcine) (Heparin 5000 units/ml) 5,000 units EVERY 12 HOURS SUBQ 08/31/16 09:00 09/30/16 08:59 Lisinopril (Prinivil) 40 mg BID ORAL 08/31/16 09:00 09/30/16 08:59 08/31/16 17:25 Morphine Sulfate (Morphine Sulfate) 1 mg Q4H PRN IVP For Pain 08/31/16 00:30 09/07/16 00:29 08/31/16 17:26 Nifedipine (Procardia XL) 60 mg DAILY ORAL 08/31/16 09:00 09/30/16 08:59 Nitroglycerin (Ntg) 0.4 mg Q5M PRN SL Prn Chest Pain 08/30/16 23:45 09/29/16 23:44 Ondansetron HCl (Zofran) 4 mg Q6H PRN IVP Nausea & Vomiting 08/31/16 00:30 09/30/16 00:29 Pantoprazole (Protonix) 40 mg BID ORAL 08/31/16 09:00 09/30/16 08:59 08/31/16 17:25 Polyethylene Glycol (Miralax) 17 gm HSPRN PRN ORAL Constipation 08/31/16 00:30 09/30/16 00:29 Ranitidine HCl (Zantac) 150 mg DAILY ORAL 08/31/16 09:00 09/30/16 08:59 08/31/16 09:47 Sevelamer Carbonate (Renvela) 3,200 mg TID@0800,1200,1700 ORAL 08/31/16 08:00 09/30/16 07:59 08/31/16 17:24 Zolpidem Tartrate (Ambien) 5 mg HSPRN PRN ORAL Insomnia 08/31/16 00:30 09/30/16 00:29 MICAH JEAN BAPTISTE Aug 31, 2016 22:03
[2016-09-01] VITALS: BP 155/82
[2016-09-01 04:00] VITALS: BP 156/89
[2016-09-01 06:52] LABS: BASOPHILS % (AUTO) 0.7 % (0.0-2.0); EOSINOPHILS % (AUTO) 9.8 % (0.0-3.0); LYMPHOCYTES % (AUTO) 14.6 % (20.0-45.0); MEAN CORPUSCULAR HEMOGLOBIN 29.8 PG (27.0-31.0); MEAN CORPUSCULAR HGB CONC 31.4 G/DL (32.0-36.0); MEAN CORPUSCULAR VOLUME 95 FL (80-99); MEAN PLATELET VOLUME 7.3 FL (6.5-10.1); PLATELET COUNT 193 K/UL (150-450); RED BLOOD COUNT 2.86 M/UL (4.70-6.10); RED CELL DISTRIBUTION WIDTH 16.5 % (11.6-14.8); WHITE BLOOD COUNT 7.8 K/UL (4.8-10.8)
[2016-09-01 07:20] LABS: ALBUMIN/GLOBULIN RATIO 1.3 (1.0-2.7); CALCIUM 7.1 mg/dL (8.6-10.2); CRP QUANT 0.4 mg/dL (< 0.5); GLOMERULAR FILTRATION RATE 8.5 mL/min (>60); MAGNESIUM 2.5 mg/dL (1.7-2.5); PHOSPHORUS 4.4 mg/dL (2.5-4.8); POTASSIUM 4.5 mEQ/L (3.4-4.9); TOTAL PROTEIN 6.2 g/dL (6.6-8.7); URIC ACID 5.1 mg/dL (3.0-7.5)
[2016-09-01 08:48] VITALS: BP 172/107
[2016-09-01] MEDS: Heparin 5000 units/ml inj SUBQ SCH (08:48)
[2016-09-01] MEDS: Lisinopril 20mg tab ORAL SCH (08:58)
[2016-09-01 09:14] LABS: HOMOCYSTINE QUANT 8.3 umol/L (0.0-15.0)
--- NOTE | 2016-09-01 10:29 | General Progress Note ---
Assessment/Plan Problem List: (1) UTI (urinary tract infection) ICD Codes: N39.0 - Urinary tract infection, site not specified SNOMED: 13985141 (2) ESRD (end stage renal disease) on dialysis ICD Codes: N18.6 - End stage renal disease; Z99.2 - Dependence on renal dialysis SNOMED: 883544521 (3) Anemia requiring transfusions ICD Codes: D64.9 - Anemia, unspecified SNOMED: 956344251 (4) Diabetes mellitus ICD Codes: E11.9 - Type 2 diabetes mellitus without complications SNOMED: 06506497 (5) Cardiomegaly ICD Codes: I51.7 - Cardiomegaly SNOMED: 6448627 Status: progressing Assessment/Plan afebrile severe anemia is improving esrd on hd vitals improving no bleeding Subjective ROS Limited/Unobtainable: Yes Allergies: Coded Allergies: IODINE (Verified Allergy, Unknown, 01/19/16) PENICILLINS (Verified Allergy, Unknown, 08/30/16) Objective Last 24 Hour Vital Signs Date Time Temp Pulse Resp B/P Pulse Ox O2 Delivery O2 Flow Rate FiO2 09/01/16 08:59 87 172/107 09/01/16 08:58 172/107 09/01/16 08:48 97.9 87 20 172/107 100 Room Air 09/01/16 04:00 98.0 80 20 156/89 100 Room Air 09/01/16 00:00 97.8 80 18 155/82 100 Room Air 08/31/16 22:30 158/88 08/31/16 20:59 168/92 08/31/16 20:00 98.6 84 20 168/92 100 Room Air 08/31/16 19:14 80 18 Room Air 08/31/16 17:56 97.9 08/31/16 17:25 165/97 08/31/16 16:58 97.9 81 19 165/97 100 08/31/16 13:01 Room Air 08/31/16 12:56 Room Air 08/31/16 11:57 96.9 78 19 169/86 97 Room Air 08/31/16 11:05 189/102 Intake and Output 08/31/16 09/01/16 19:00 07:00 Intake Total 300 ml Output Total 2100 ml Balance -2100 ml 300 ml Intake Oral 300 ml Output Hemodialysis UF 2100 ml # Voids 3 Laboratory Tests 09/01/16 05:55: White Blood Count 7.8, Red Blood Count 2.86L, Hemoglobin 8.5L, Hematocrit 27.2L , Mean Corpuscular Volume 95, Mean Corpuscular Hemoglobin 29.8, Mean Corpuscular Hemoglobin Concent 31.4L, Red Cell Distribution Width 16.5H, Platelet Count 193, Mean Platelet Volume 7.3, Neutrophils (%) (Auto) 69.0, Lymphocytes (%) (Auto) 14.6L, Monocytes (%) (Auto) 6.0, Eosinophils (%) (Auto) 9.8H, Basophils (%) (Auto) 0.7, Sodium Level 140, Potassium Level 4.5, Chloride Level 94L, Carbon Dioxide Level 29, Anion Gap 17H, Blood Urea Nitrogen 34H, Creatinine 8.0H, Estimat Glomerular Filtration Rate 8.5, Glucose Level 104, Uric Acid 5.1, Calcium Level 7.1L, Phosphorus Level 4.4, Magnesium Level 2.5, Total Bilirubin 0.3, Aspartate Amino Transf (AST/SGOT) 32, Alanine Aminotransferase (ALT/SGPT) 16, Alkaline Phosphatase 85, C-Reactive Protein, Quantitative 0.4, Pro-B-Type Natriuretic Peptide 88398U, Total Protein 6.2L, Albumin 3.6, Globulin 2.6, Albumin/Globulin Ratio 1.3 Height (Feet): 6 Height (Inches): 1.00 Weight (Pounds): 162 EENT: PERRL/EOMI Neck: supple Cardiovascular: normal rate Respiratory/Chest: lungs clear Juan Carlos Juarez MD Sep 01, 2016 10:29
--- NOTE | 2016-09-01 11:02 | Pulmonology Progress Note ---
Assessment/Plan Assessment/Plan ASSESSMENT acute anemia requiring blood transfusion; s/p blood transfusion anemia of chronic ( kidney disease) macrocytic anemia possible GI bleeding elevated CEA ESRD, on HD x 16 yrs systolic heart failure ( no evidence of exacerbation) mild cardiomyopathy HTN urgency severe pulmonary HTN PLAN OF CARE MS floor s/p 3 u PRBC heme follows iron panel with low iron, ferritin less than 300 ? add iron supplement - as per heme stool OB +, check another stool OB x 2, elevated CEA GI consult as per PMD discretion B 12, folate ok peripheral blood smear reviewed continue EPO O2 HHN prn CXR no acute process, + cardiomegaly HD as per nephro monitor renal parameters, lytes BP management with CCB and ZORA, increased Nifedipine dose as per nephro DVT, GI prophylaxis case discussed and evaluated by supervising physician Subjective Allergies: Coded Allergies: IODINE (Verified Allergy, Unknown, 01/19/16) PENICILLINS (Verified Allergy, Unknown, 08/30/16) Subjective denies SOB, chest pain HH with small trend down, stool OB + denies hematemesis, hematochezia, melena Objective Last 24 Hour Vital Signs Date Time Temp Pulse Resp B/P Pulse Ox O2 Delivery O2 Flow Rate FiO2 09/01/16 08:59 87 172/107 09/01/16 08:58 172/107 09/01/16 08:48 97.9 87 20 172/107 100 Room Air 09/01/16 04:00 98.0 80 20 156/89 100 Room Air 09/01/16 00:00 97.8 80 18 155/82 100 Room Air 08/31/16 22:30 158/88 08/31/16 20:59 168/92 08/31/16 20:00 98.6 84 20 168/92 100 Room Air 08/31/16 19:14 80 18 Room Air 08/31/16 17:56 97.9 08/31/16 17:25 165/97 08/31/16 16:58 97.9 81 19 165/97 100 08/31/16 13:01 Room Air 08/31/16 12:56 Room Air 08/31/16 11:57 96.9 78 19 169/86 97 Room Air 08/31/16 11:05 189/102 Intake and Output 08/31/16 09/01/16 19:00 07:00 Intake Total 300 ml Output Total 2100 ml Balance -2100 ml 300 ml Intake Oral 300 ml Output Hemodialysis UF 2100 ml # Voids 3 General Appearance: no acute distress HEENT: normocephalic, atraumatic, anicteric, mucous membranes moist Respiratory/Chest: lungs clear, no respiratory distress, no accessory muscle use Cardiovascular: normal peripheral pulses, normal rate, no JVD Abdomen: soft, non tender, non distended Genitourinary: normal external genitalia Extremities: no edema, pedal pulses normal Neurologic/Psychiatric: no motor/sensory deficits, alert, responsive Musculoskeletal: normal muscle bulk Microbiology Date/Time Source Procedure Growth Status 08/30/16 02:30 Rectum VRE Culture - Final NO VANCOMYCIN RESISTANT ENTEROCOCCUS ... Complete Laboratory Tests 09/01/16 05:55: White Blood Count 7.8, Red Blood Count 2.86L, Hemoglobin 8.5L, Hematocrit 27.2L , Mean Corpuscular Volume 95, Mean Corpuscular Hemoglobin 29.8, Mean Corpuscular Hemoglobin Concent 31.4L, Red Cell Distribution Width 16.5H, Platelet Count 193, Mean Platelet Volume 7.3, Neutrophils (%) (Auto) 69.0, Lymphocytes (%) (Auto) 14.6L, Monocytes (%) (Auto) 6.0, Eosinophils (%) (Auto) 9.8H, Basophils (%) (Auto) 0.7, Sodium Level 140, Potassium Level 4.5, Chloride Level 94L, Carbon Dioxide Level 29, Anion Gap 17H, Blood Urea Nitrogen 34H, Creatinine 8.0H, Estimat Glomerular Filtration Rate 8.5, Glucose Level 104, Uric Acid 5.1, Calcium Level 7.1L, Phosphorus Level 4.4, Magnesium Level 2.5, Total Bilirubin 0.3, Aspartate Amino Transf (AST/SGOT) 32, Alanine Aminotransferase (ALT/SGPT) 16, Alkaline Phosphatase 85, C-Reactive Protein, Quantitative 0.4, Pro-B-Type Natriuretic Peptide 94669I, Total Protein 6.2L, Albumin 3.6, Globulin 2.6, Albumin/Globulin Ratio 1.3 Current Medications Medications (Trade) Dose Ordered Sig/Alejandro Route PRN Reason Start Time Stop Time Status Last Admin Dose Admin Acetaminophen (Tylenol) 650 mg Q4H PRN ORAL fever 08/31/16 00:30 09/30/16 00:29 09/01/16 08:59 Albuterol/ Ipratropium (DuoNeb 0.5-3(2.5)mg/3ml) 3 ml Q6H PRN HHN dyspnea 08/31/16 01:00 09/05/16 00:59 Clonidine HCl (Catapres) 0.1 mg Q4H PRN ORAL SBP>160 08/31/16 00:30 09/30/16 00:29 08/31/16 20:59 Dextrose (Dextrose 50%) STAT PRN IV Hypoglycemia 08/31/16 00:30 09/30/16 00:29 Diazepam (Valium) 5 mg DAILY ORAL 08/31/16 10:00 09/07/16 09:59 09/01/16 08:58 Diphenhydramine HCl (Benadryl) 25 mg Q6H PRN ORAL Itching 08/31/16 09:15 09/30/16 09:14 08/31/16 17:25 Heparin Sodium (Porcine) (Heparin 5000 units/ml) 5,000 units EVERY 12 HOURS SUBQ 08/31/16 09:00 09/30/16 08:59 Lisinopril (Prinivil) 40 mg BID ORAL 08/31/16 09:00 09/30/16 08:59 09/01/16 08:58 Morphine Sulfate (Morphine Sulfate) 1 mg Q4H PRN IVP For Pain 08/31/16 00:30 09/07/16 00:29 08/31/16 17:26 Nifedipine (Procardia XL) 60 mg DAILY ORAL 08/31/16 09:00 09/30/16 08:59 09/01/16 08:59 Nitroglycerin (Ntg) 0.4 mg Q5M PRN SL Prn Chest Pain 08/30/16 23:45 09/29/16 23:44 Ondansetron HCl (Zofran) 4 mg Q6H PRN IVP Nausea & Vomiting 08/31/16 00:30 09/30/16 00:29 Pantoprazole (Protonix) 40 mg BID ORAL 08/31/16 09:00 09/30/16 08:59 08/31/16 17:25 Polyethylene Glycol (Miralax) 17 gm HSPRN PRN ORAL Constipation 08/31/16 00:30 09/30/16 00:29 Ranitidine HCl (Zantac) 150 mg DAILY ORAL 08/31/16 09:00 09/30/16 08:59 09/01/16 08:59 Sevelamer Carbonate (Renvela) 3,200 mg TID@0800,1200,1700 ORAL 08/31/16 08:00 09/30/16 07:59 09/01/16 08:58 Zolpidem Tartrate (Ambien) 5 mg HSPRN PRN ORAL Insomnia 08/31/16 00:30 09/30/16 00:29 Hasmukh ([facility])Christa NP Sep 01, 2016 11:02
--- NOTE | 2016-09-01 11:53 | Cardiology Report ---
APPROVED REPORT EKG Measurement Heart [id number] VT [id number] Sinus rhythm with 1st degree AV block with occasional premature ventricular complexes Left axis deviation Nonspecific intraventricular block Nonspecific T wave abnormality Abnormal ECG
--- NOTE | 2016-09-01 11:56 | General Progress Note ---
Assessment/Plan Status: stable Assessment/Plan status; ESRD for 16 years Anemia HTN OOC no evidence of DM Plan: Transfused- Add Clonidine po for BP Anemia ORTIZ HD 08/31 and next 09/02 BP med adjustment Subjective ROS Limited/Unobtainable: No Constitutional: Reports: malaise Allergies: Coded Allergies: IODINE (Verified Allergy, Unknown, 01/19/16) PENICILLINS (Verified Allergy, Unknown, 08/30/16) Objective Last 24 Hour Vital Signs Date Time Temp Pulse Resp B/P Pulse Ox O2 Delivery O2 Flow Rate FiO2 09/01/16 08:59 87 172/107 09/01/16 08:58 172/107 09/01/16 08:48 97.9 87 20 172/107 100 Room Air 09/01/16 04:00 98.0 80 20 156/89 100 Room Air 09/01/16 00:00 97.8 80 18 155/82 100 Room Air 08/31/16 22:30 158/88 08/31/16 20:59 168/92 08/31/16 20:00 98.6 84 20 168/92 100 Room Air 08/31/16 19:14 80 18 Room Air 08/31/16 17:56 97.9 08/31/16 17:25 165/97 08/31/16 16:58 97.9 81 19 165/97 100 08/31/16 13:01 Room Air 08/31/16 12:56 Room Air 08/31/16 11:57 96.9 78 19 169/86 97 Room Air Intake and Output 08/31/16 09/01/16 19:00 07:00 Intake Total 300 ml Output Total 2100 ml Balance -2100 ml 300 ml Intake Oral 300 ml Output Hemodialysis UF 2100 ml # Voids 3 Laboratory Tests 09/01/16 05:55: White Blood Count 7.8, Red Blood Count 2.86L, Hemoglobin 8.5L, Hematocrit 27.2L , Mean Corpuscular Volume 95, Mean Corpuscular Hemoglobin 29.8, Mean Corpuscular Hemoglobin Concent 31.4L, Red Cell Distribution Width 16.5H, Platelet Count 193, Mean Platelet Volume 7.3, Neutrophils (%) (Auto) 69.0, Lymphocytes (%) (Auto) 14.6L, Monocytes (%) (Auto) 6.0, Eosinophils (%) (Auto) 9.8H, Basophils (%) (Auto) 0.7, Sodium Level 140, Potassium Level 4.5, Chloride Level 94L, Carbon Dioxide Level 29, Anion Gap 17H, Blood Urea Nitrogen 34H, Creatinine 8.0H, Estimat Glomerular Filtration Rate 8.5, Glucose Level 104, Uric Acid 5.1, Calcium Level 7.1L, Phosphorus Level 4.4, Magnesium Level 2.5, Total Bilirubin 0.3, Aspartate Amino Transf (AST/SGOT) 32, Alanine Aminotransferase (ALT/SGPT) 16, Alkaline Phosphatase 85, C-Reactive Protein, Quantitative 0.4, Pro-B-Type Natriuretic Peptide 85357D, Total Protein 6.2L, Albumin 3.6, Globulin 2.6, Albumin/Globulin Ratio 1.3 Height (Feet): 6 Height (Inches): 1.00 Weight (Pounds): 162 General Appearance: no apparent distress Objective other physical exam not changed FIDELINA MOFFETT Sep 01, 2016 11:56
[2016-09-01 12:03] VITALS: BP 178/98
--- NOTE | 2016-09-01 12:51 | General Progress Note ---
Assessment/Plan Assessment/Plan ASSESSMENT: 1. Anemia, secondary to chronic disease. +MACROcytosis 2. Decreased hemoglobin and hematocrit, rule out gastrointestinal bleed. 3. Anemia secondary to B12 deficiency 4. Anemia, secondary to kidney disease. 5. End-stage renal disease, on hemodialysis. 6. Hypertension. 7. DM RECOMMENDATIONS: 1. Monitor counts. 2. Hemodialysis to resume. 3. Continue Epogen. 4. Anemia workup has been reviewed 5. Continue ferrous sulfate given ferritin <300 6. GI prophylaxis. 7. Transfuse with blood to maintain hemoglobin above 7. 8. Followup with nephro, pulm recs 9. Discussed with staff. Thank you, Triston Irene MD Subjective Constitutional: Reports: no symptoms HEENT: Reports: no symptoms Cardiovascular: Reports: no symptoms Respiratory: Reports: no symptoms Gastrointestinal/Abdominal: Reports: poor appetite Genitourinary: Reports: no symptoms Neurologic/Psychiatric: Reports: no symptoms Endocrine: Reports: no symptoms Hematologic/Lymphatic: Reports: anemia Allergies: Coded Allergies: IODINE (Verified Allergy, Unknown, 01/19/16) PENICILLINS (Verified Allergy, Unknown, 08/30/16) Subjective stable, no events overnight, no hematochezia or bleeding Objective Last 24 Hour Vital Signs Date Time Temp Pulse Resp B/P Pulse Ox O2 Delivery O2 Flow Rate FiO2 09/01/16 12:03 97.0 85 20 178/98 100 Room Air 09/01/16 11:35 81 18 Room Air 09/01/16 08:59 87 172/107 09/01/16 08:58 172/107 09/01/16 08:48 97.9 87 20 172/107 100 Room Air 09/01/16 04:00 98.0 80 20 156/89 100 Room Air 09/01/16 00:00 97.8 80 18 155/82 100 Room Air 08/31/16 22:30 158/88 08/31/16 20:59 168/92 08/31/16 20:00 98.6 84 20 168/92 100 Room Air 08/31/16 19:14 80 18 Room Air 08/31/16 17:56 97.9 08/31/16 17:25 165/97 08/31/16 16:58 97.9 81 19 165/97 100 08/31/16 13:01 Room Air 08/31/16 12:56 Room Air Intake and Output 08/31/16 09/01/16 19:00 07:00 Intake Total 300 ml Output Total 2100 ml Balance -2100 ml 300 ml Intake Oral 300 ml Output Hemodialysis UF 2100 ml # Voids 3 Laboratory Tests 09/01/16 05:55: White Blood Count 7.8, Red Blood Count 2.86L, Hemoglobin 8.5L, Hematocrit 27.2L , Mean Corpuscular Volume 95, Mean Corpuscular Hemoglobin 29.8, Mean Corpuscular Hemoglobin Concent 31.4L, Red Cell Distribution Width 16.5H, Platelet Count 193, Mean Platelet Volume 7.3, Neutrophils (%) (Auto) 69.0, Lymphocytes (%) (Auto) 14.6L, Monocytes (%) (Auto) 6.0, Eosinophils (%) (Auto) 9.8H, Basophils (%) (Auto) 0.7, Sodium Level 140, Potassium Level 4.5, Chloride Level 94L, Carbon Dioxide Level 29, Anion Gap 17H, Blood Urea Nitrogen 34H, Creatinine 8.0H, Estimat Glomerular Filtration Rate 8.5, Glucose Level 104, Uric Acid 5.1, Calcium Level 7.1L, Phosphorus Level 4.4, Magnesium Level 2.5, Total Bilirubin 0.3, Aspartate Amino Transf (AST/SGOT) 32, Alanine Aminotransferase (ALT/SGPT) 16, Alkaline Phosphatase 85, C-Reactive Protein, Quantitative 0.4, Pro-B-Type Natriuretic Peptide [id number], Total Protein 6.2L, Albumin 3.6, Globulin 2.6, Albumin/Globulin Ratio 1.3 Height (Feet): 6 Height (Inches): 1.00 Weight (Pounds): 162 General Appearance: alert EENT: TMs normal Neck: supple Cardiovascular: regular rhythm Respiratory/Chest: chest wall non-tender Abdomen: non tender Extremities: non-tender Edema: 1+ Leg (L), 1+ Leg (R) Edema: mild edema Neurologic: alert Skin: warm/dry Triston Irene Sep 01, 2016 12:51
--- NOTE | 2016-09-01 17:35 | Cardiology Report ---
APPROVED REPORT EXAM: Two-dimensional and M-mode echocardiogram with Doppler and color Doppler. INDICATION Congestive Heart Failure M-Mode DIMENSIONS IVSd1.6 (0.7-1.1cm)Left Atrium (MM)5.2 (1.6-4.0cm) LVDd6.3 (3.5-5.6cm)Aortic Root3.4 (2.0-3.7cm) PWd1.7 (0.7-1.1cm)Aortic Cusp Exc.2.0 (1.5-2.0cm) LVDs4.1 (2.5-4.0cm) PWs2.2 cm Mild left ventricular enlargement. Global left ventricular hypokinesis. Left ventricular ejection fraction estimated to be 45-50 %. D-shaped septal wall configuration is suggestive of right ventricular pressure and volume overload. Moderate left ventricular hypertrophy. No evidence of pericardial fat or effusion. Mild bi-atrial enlargement. Moderate right ventricular enlargement. Mild focal aortic valve sclerosis with adequate cusp excursion. Mildly thickened mitral valve leaflets with normal excursion. Mild mitral annulus and aortic root calcification. Pulmonic valve not well visualized. Normal tricuspid valve structure. IVC dilated at 2.8 cm with minimal physiologic collapse, RAP estimated to be 20 mmHg. A color flow and spectral Doppler study was performed and revealed: No aortic regurgitation. Mild mitral regurgitation. Mitral diastolic velocities suggest reduced left ventricular relaxation (Grade I). Mild to moderate tricuspid regurgitation. Tricuspid systolic velocities suggests peak right ventricular systolic pressure of 74 mmHg, consistent with severe pulmonary hypertension. No pulmonic regurgitation present.
--- NOTE | 2016-09-04 13:20 | Discharge Summary ---
Discharge Summary Hospital Course Date of Admission Aug 29, 2016 at 23:37 Date of Discharge Sep 01, 2016 at 11:00 Admitting Diagnosis hyperkalemia, anemia HPI Pierre Bauer is a 55 year old male who was admitted on Aug 29, 2016 at 23:37 for Hyperkalemia,Anemia Hospital Course dc summary dictated # [id number] Discharge Discharge Disposition Patient signed AMA Discharge Diagnoses: Hasmukh (Sylwiaashleigh)Christa NP Sep 04, 2016 13:20
--- NOTE | 2016-09-05 04:48 | Discharge Summary 2 SIG ---
DATE OF ADMISSION: 08/29/2016 DATE OF SIGNING AGAINST MEDICAL ADVICE : 09/01/2016 REASON FOR ADMISSION: 55-year-old male presented to emergency room complaining of generalized weakness for few days. The patient with end-stage renal disease , on hemodialysis for 16 years. He denied chest pain, shortness of breath. Denied fever or chills. Denied abdominal pain, nausea, and vomiting. No hematemesis. No hematochezia. No melena. Workup in the emergency room revealed severe anemia with hemoglobin of 5.8, hematocrit 20.1, evidence of renal failure with BUN of 29 and creatinine 6.5, potassium was stable. EKG revealed sinus rhythm, no ischemic changes. Chest x-ray with evidence of cardiomegaly. Blood pressure was 189/102, pulse oximetry stable on the room air. The patient admitted for blood transfusion and further management. ADMITTING DIAGNOSES: 1. Acute anemia requiring blood transfusion. 2. End-stage renal disease, on hemodialysis. 3. Hypertensive urgency. HOSPITAL STAY: The patient admitted to the hospital. The patient was transfused with total of 3 units of packed red blood cells. Prior to signing against medical advice, hemoglobin - 8.5, hematocrit - 27.2, however, from 08/31/2016, when the hemoglobin was 9.1, hematocrit 28.6, hemoglobin- and hematocrit with a small trend down. Stool for occult blood positive. CEA elevated. GI consult was requested. Meantime flour blender followed the patient, and anemia workup was initiated, which revealed stable iron panel, normal folate and B12 level. ProBNP was 44, 368. Chest x-ray revealed cardiomegaly, but no definite acute process. Echocardiogram revealed ejection fraction of 45% to 50% and right ventricular systolic pressure of 72 consistent with severe pulmonary hypertension. presentation and imaging did not revealed acute CHF exacerbation. Blood pressure was managed with calcium channel ebony and clonidine. Dose of calcium channel ebony was increased as per prize coordinator. Blood pressure better with the new regimen of antihypertensive medications. Hemodialysis done as per prize coordinator orders with close monitoring of electrolytes and renal function. GI consult was pending due to the elevated CEA, anemia, and positive stool OB to rule out GI bleeding. However, the patient decided to sign against medical advice. Risk and consequences of signing against medical advice were explained to the patient. He insisted on signing the form. DISCHARGE DIAGNOSES: Acute anemia requiring blood transfusion s/p blood transfusion anemia of chronic/renal disease possible GI bleeding elevated CEA End-stage renal disease, on hemodialysis. hypertensive urgency severe pulmonary HTN mild cardiomyopathy mild systolic heart failure ( no evidence of exacerbation) Juan Carlos Juarez M.D. I have been assigned to dictate discharge summary on this account and I was not involved in the patient's management. Christa Noe (Vanchtein) N.PSatya DR: Muna JOB#: [id number] CC: MARITO
== END 2016-09-01 11:00 | disposition left against medical advice (07) | DRG 811 ==
LOC: EMR 22:20 → 2E 23:37 → EDBEDREQ 08-30 02:28 → 4W 08-30 21:30
PROC: 30233N1 Transfusion of Nonautologous Red Blood Cells into Peripheral Vein, Percutaneous Approach (ICD-10-PCS; principal; 2016-08-30)
PROC: 5A1D00Z (ICD-10-PCS; 2016-08-31)
DX: D64.9 Anemia, unspecified (principal); N18.6 End stage renal disease; I12.0 Hypertensive chronic kidney disease with stage 5 chronic kidney disease or end stage renal disease; I27.2 Other secondary pulmonary hypertension; N39.0 Urinary tract infection, site not specified; Z99.2 Dependence on renal dialysis; I51.7 Cardiomegaly; F17.200 Nicotine dependence, unspecified, uncomplicated; I16.0 Hypertensive urgency; R97.0 Elevated carcinoembryonic antigen [CEA]; Z88.8 Allergy status to other drugs, medicaments and biological substances; Z88.0 Allergy status to penicillin; E11.9 Type 2 diabetes mellitus without complications; K21.9 Gastro-esophageal reflux disease without esophagitis
CPT/HCPCS: 36415; 71010; 80053; 80061; 82270; 82378; 82550; 82553; 82607; 82728; 82746; 82962; 83036; 83090; 83540; 83550; 83615; 83735; 83880; 83921; 84100; 84443; 84484; 84550; 85007; 85025; 85044; 85060; 85610; 85651; 85730; 86140; 86850; 86900; 86901; 86920; 87081; 93005; 93306; 94664; J1815